=== PATIENT | female | born 1975 | race American Indian/Alaskan Native ===

== ENCOUNTER 2016-07-13 19:35 | Emergency (ER) | payer OTHER ==
[2016-07-13] MEDS ORDERED: MOTRIN PO ONE (23:48)
--- NOTE | 2016-07-14 00:11 | Emergency Department Report ---
HPI - General Chief Complaint: Extremity Problem,Nontraumatic Time Seen by Provider: 07/13/16 23:17 - HPI HPI: Patient is a 40-year-old female who presents to the ED complaining of bilateral breast pain and right shoulder pain 5 days. Patient states purse began hurting about 5 days ago. Patient denies any breast discharge or erythema or swelling or lumps in breast. Patient states last menstrual period was 2016. Patient states she has a history of bilateral tubal ligation 12 years ago. She states pain is relieved slightly she takes ibuprofen. She states right shoulder pain first began about 2 weeks ago. Patient's pain has been throbbing in nature localized to the right shoulder is sometimes so and her forearm. Patient states pain is worsened with movement. Patient rates pain about 6 out of 10 in intensity. Patient denies fever assess chills/nausea/vomiting/shortness of breath/chest pain/diarrhea or any other problems. ED Past Medical Hx - Past Medical History Previous Medical History?: No - Surgical History Past Surgical History?: Yes Additional Surgical History: C SECTION / TUBAL LIGATION - Social History Smoking Status: Never Smoker Substance Use Type: Alcohol - Medications Home Medications: Home Medications Medication Instructions Recorded Confirmed Last Taken Type Cyclobenzaprine [Flexeril] 10 mg PO QHS PRN #20 tablet 07/14/16 Unknown Rx Ibuprofen [Motrin] 800 mg PO Q8HR PRN #30 tablet 07/14/16 Unknown Rx ED Review of Systems ROS: Stated complaint: BREAT PAIN/SWELLING/SHOULDER PAIN Other details as noted in HPI Constitutional: denies: chills, fever Eyes: denies: eye pain, eye discharge, vision change ENT: denies: ear pain, throat pain Respiratory: denies: cough, shortness of breath, wheezing Cardiovascular: denies: chest pain, palpitations Endocrine: no symptoms reported Gastrointestinal: denies: abdominal pain, nausea, diarrhea Genitourinary: denies: urgency, dysuria, discharge Musculoskeletal: denies: back pain, joint swelling, arthralgia Skin: denies: rash, lesions Neurological: denies: headache, weakness, paresthesias Psychiatric: denies: anxiety, depression Hematological/Lymphatic: denies: easy bleeding, easy bruising Physical Exam - Physical Exam Vital Signs: Vital Signs 07/13/16 07/13/16 20:41 23:53 Temperature 98.2 F Pulse Rate 79 Respiratory 20 20 Rate Blood Pressure 131/89 O2 Sat by Pulse 100 Oximetry Physical Exam: GENERAL: Alert and oriented x3, no apparent distress, Normal Gait, atraumatic. HEAD: Head is normocephalic and a-traumatic. EYES: Extra ocular muscles are intact. Pupils are equal, round, and reactive to light and accommodation. EARS: symetrical, atraumatic, non tender, ear canal clear and moderate cerumen, tympanic membrance non inflamed. Gross auditory nml bilaterally. NOSE: Nose symetrical, Nontender,Nares appeared normal. MOUTH:Mouth is well hydrated and without lesions. Tonsils nonerythematous or swollen. NECK: Supple. Non edematous, No carotid bruits. No lymphadenopathy or thyromegaly. LUNGS: Symetrical with respiration, No wheezing, no rales or crackles, CTAB. HEART: S1, S2 present, regular rate and rhythm without murmur, no rubs, no gallops. ABDOMEN: No organomegaly was noted,Positive bowel sounds, soft, and non- distended. . Nontender to palpation on all Quadrants, NO CVA tenderness. BREAST: Symetrical, Supple bilaterally, No Masses, lumps, lesions, ulcerations. Mild tenderness to palpation of bilateral breast EXTREMITIES/MUSCULOSKELETAL: No cyanosis, clubbing, rash, lesions or edema. Full ROM bilaterally. UE/LE Pulses 2+ bilaterally. LE and UE 5+ strength bilaterally. Mild pain with range of motion of right shoulder otherwise normal exam NEUROLOGIC: No focal Deficit, Cranial nerves II through XII are grossly intact. No loss of sensation PSYCHIATRIC: Mood is congruent with affect, denies suicidal or homicidal ideations. SKIN: Warm and dry, No lesions, No ulceration or induration present. ED Course Vital Signs 07/13/16 07/13/16 20:41 23:53 Temperature 98.2 F Pulse Rate 79 Respiratory 20 20 Rate Blood Pressure 131/89 O2 Sat by Pulse 100 Oximetry ED Medical Decision Making - Medical Decision Making 40-year-old female presents with bilateral mastodynia and right shoulder strain. ED course: Patient received 600 mg of Motrin. Final signs are stable. Patient is in no acute or respiratory distress. Discussed with patient follow-up with [facility] as referred. Discussed with patient follow-up with primary care physician as well. Specific patient to do some [id number] vitamin E to help alleviate breast pain. Discussed with patient home medications Motrin 800 for breast pain and right shoulder pain as well as Flexeril for right shoulder myalgia Patient states she understands and complaints of follow-up. Critical care attestation.: If time is entered above; I have spent that time in minutes in the direct care of this critically ill patient, excluding procedure time. ED Disposition Clinical Impression: Bilateral mastodynia, Myalgia Right shoulder strain Qualifiers: Encounter type: initial encounter Qualified Code(s): S46.911A - Strain of unspecified muscle, fascia and tendon at shoulder and upper arm level, right arm , initial encounter Disposition: DISCHARGED TO HOME OR SELFCARE Is pt being admited?: No Does the pt Need Aspirin: No Condition: Stable Instructions: Chest Pain (ED), Musculoskeletal Pain (ED), Trigger Point Pain ( ED), Breast Fullness Versus Breast Engorgement (ED) Prescriptions: Cyclobenzaprine [Flexeril] 10 mg PO QHS PRN #20 tablet PRN Reason: Muscle Spasm Ibuprofen [Motrin] 800 mg PO Q8HR PRN #30 tablet PRN Reason: Pain Referrals: PRIMARY CARE, [Primary Care Provider] - 3-5 Days GWEN RAZA MD [Referring] - 3-5 Days CHANTALE COLE MD [Referring] - 3-5 Days NEYMAR MARTINEZ MD [Referring] - 3-5 Days Forms: Work/School Release Form(ED) Time of Disposition: 00:18
[2016-07-14 01:00] VITALS: BP 106/68
== END 2016-07-14 01:00 | disposition home or self-care (01) ==
LOC: ED 19:35
DX: S46.911A Strain of unspecified muscle, fascia and tendon at shoulder and upper arm level, right arm, initial encounter (principal); N64.4 Mastodynia; M79.1 Myalgia; X58.XXXA Exposure to other specified factors, initial encounter; Y93.89 Activity, other specified; Y99.9 Unspecified external cause status; Y92.89 Other specified places as the place of occurrence of the external cause
CPT/HCPCS: 99282

== ENCOUNTER 2016-10-26 18:12 | Emergency (ER) | payer SELFPAY ==
[2016-10-26 18:25] VITALS: BP 125/77
--- NOTE | 2016-10-26 21:33 | Emergency Department Report ---
ED Extremity Problem HPI - General Chief complaint: Extremity Injury, Lower Stated complaint: LT TOE POSS BROKEN Time Seen by Provider: 10/26/16 21:21 Source: patient Mode of arrival: Ambulatory Limitations: No Limitations - History of Present Illness Initial comments: PT c/o L 5th toe injury. PT states last night she was walking in her home and she accidentally kicked her couch. PT states the pain and swelling is worse today. 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 PT rates her pain 10/10 and she has not taken anything for the pain. PT states she drove herself to the ED. PT denies other injuries. MD Complaint: joint paint -: Sudden Location: left, toe -: No fever Severity scale (0 -10): 10 Quality: sharp, constant Consistency: constant Improves with: rest (mild ) Worsens with: weight bearing, walking, palpation Associated Symptoms: denies other symptoms - Related Data Previous Rx's Medication Instructions Recorded Last Taken Type HYDROcodone/APAP 5-325 [[place] 1 each PO Q6HR PRN #10 tablet 10/26/16 Unknown Rx 5/325] Ibuprofen [Motrin] 600 mg PO Q8H PRN #15 tablet 10/26/16 Unknown Rx Allergies Allergy/AdvReac Type Severity Reaction Status Date / Time latex Allergy Itching Verified 07/13/16 20:41 ED Review of Systems ROS: Stated complaint: LT TOE POSS BROKEN Other details as noted in HPI Comment: All other systems reviewed and negative Constitutional: denies: fever Cardiovascular: denies: chest pain Gastrointestinal: denies: abdominal pain Musculoskeletal: as per HPI Skin: change in color (bruising ) Neurological: denies: headache ED Past Medical Hx - Past Medical History Previous Medical History?: No - Surgical History Past Surgical History?: Yes Additional Surgical History: C SECTION / TUBAL LIGATION - Social History Smoking Status: Never Smoker Substance Use Type: None - Medications Home Medications: Home Medications Medication Instructions Recorded Confirmed Last Taken Type HYDROcodone/APAP 5-325 [[place] 1 each PO Q6HR PRN #10 tablet 10/26/16 Unknown Rx 5/325] Ibuprofen [Motrin] 600 mg PO Q8H PRN #15 tablet 10/26/16 Unknown Rx ED Physical Exam - General Limitations: No Limitations General appearance: alert, in no apparent distress - Head Head exam: Present: atraumatic, normocephalic, normal inspection - Eye Eye exam: Present: normal appearance, PERRL, EOMI. Absent: conjunctival injection - ENT ENT exam: Present: normal exam, normal external ear exam - Neck Neck exam: Present: normal inspection, full ROM - Respiratory Respiratory exam: Present: normal lung sounds bilaterally. Absent: respiratory distress, wheezes - Cardiovascular Cardiovascular Exam: Present: regular rate, normal rhythm - Extremities Exam Extremities exam: Present: tenderness - Expanded Lower Extremity Exam Left Lower Leg exam: Present: normal inspection, full ROM Ankle exam: Present: normal inspection, full ROM Foot/Toe exam: Present: tenderness, swelling, ecchymosis (to L 5th toe ). Absent: normal inspection, full ROM, dislocation, tenderness at base of 5th metatarsal, nail avulsion Neuro vascular tendon exam: Absent: no vascular compromise, pulse deficit - Back Exam Back exam: Present: normal inspection, full ROM, CVA tenderness (R), CVA tenderness (L), muscle spasm, paraspinal tenderness - Neurological Exam Neurological exam: Present: alert, oriented X3 - Psychiatric Psychiatric exam: Present: normal affect, normal mood - Skin Skin exam: Present: warm, dry, intact, ecchymosis ED Course Vital Signs 10/26/16 18:20 Temperature 98.1 F Pulse Rate 90 Respiratory 18 Rate Blood Pressure 125/77 O2 Sat by Pulse 98 Oximetry - Reevaluation(s) Reevaluation #1: 10/26/16 21:37 PT aware of dx and plan - Pulse Oximetry Interpretation Digit-Finger Initial Pulse Oximetry Readin Actions Taken: none ED Medical Decision Making - Radiology Data Radiology results: image reviewed interpreted by me: L toe - fx proximal phalange - Differential Diagnosis fracture, contusion Critical Care Time: No Critical care attestation.: If time is entered above; I have spent that time in minutes in the direct care of this critically ill patient, excluding procedure time. ED Disposition Clinical Impression: Toe fracture, left Qualifiers: Encounter type: initial encounter Toe: lesser toe Fracture type: closed Phalanx : proximal Physeal involvement: unspecified Qualified Code(s): S92.512A - Displaced fracture of proximal phalanx of left lesser toe(s), initial encounter for closed fracture Disposition: DISCHARGED TO HOME OR SELFCARE Is pt being admited?: No Does the pt Need Aspirin: No Condition: Stable Instructions: Toe Fracture (ED), Crutch Instructions (ED), RICE Therapy (ED) Additional Instructions: No driving or ETOH after [place] Follow up with [facility]TH[facility] in 3-5 days Prescriptions: HYDROcodone/APAP 5-325 [[place] 5/325] 1 each PO Q6HR PRN #10 tablet PRN Reason: Pain Ibuprofen [Motrin] 600 mg PO Q8H PRN #15 tablet PRN Reason: Pain Referrals: PRIMARY CARE, [Primary Care Provider] - 3-5 Days Forms: Work/School Release Form(ED) Time of Disposition: 21:46
--- NOTE | 2016-10-26 21:33 | XRay Report ---
FINAL REPORT EXAM: XR TOE(S) 2 LT HISTORY: trauma; swelling, pain 5th digit left foot COMPARISONS: None. FINDINGS: Three views left toes Oblique extra-articular fracture involves proximal left 5th phalanx. Minimal comminution and angulation. No other fractures are seen. IMPRESSION: Minimally angulated and comminuted extra-articular fracture involving the proximal left 5th phalanx.
== END 2016-10-26 21:47 | disposition home or self-care (01) ==
LOC: ED 18:12
DX: S92.512A Displaced fracture of proximal phalanx of left lesser toe(s), initial encounter for closed fracture (principal); X58.XXXA Exposure to other specified factors, initial encounter; Y93.9 Activity, unspecified; Y92.9 Unspecified place or not applicable; Y99.9 Unspecified external cause status
CPT/HCPCS: 99283